=== PATIENT | female | born 1985 | race Caucasian/White ===

== ENCOUNTER 2016-06-26 23:35 | Emergency (ER) | payer MEDICAID ==
[~2016-06-26] VITALS: Ht 152.4 cm; Wt 68.5 kg
[~2016-06-26 23:35] MED LIST: PREN1TAB49 PO
[2016-06-26 23:40] VITALS: Ht 152.4 cm; Wt 68.5 kg
[2016-06-27 05:11] LABS: BASOPHILS % 0.2 % (0.0-2.0); EOSINOPHILS # 0.1 10^3/ul (0.0-0.5); EOSINOPHILS % 0.7 % (0.0-7.0); HEMATOCRIT 38.8 % (37.0-47.0); HEMOGLOBIN 13.8 g/dl (12.0-16.0); LYMPHOCYTES # 3.4 10^3/ul (0.8-2.9); LYMPHOCYTES % 30.8 % (15.0-51.0); MEAN CORPUSCULAR HEMOGLOBIN 30.9 pg (29.0-33.0); MEAN CORPUSCULAR HGB CONC 35.5 g/dl (32.0-37.0); MEAN CORPUSCULAR VOLUME 87.1 fl (82.0-101.0); MEAN PLATELET VOLUME 8.4 fl (7.4-10.4); MONOCYTE # 0.5 10^3/ul (0.3-0.9); NEUTROPHILS % 63.3 % (39.0-77.0); PLATELET COUNT 267 10^3/UL (140-440); RED BLOOD COUNT 4.46 10^6/ul (4.20-5.40); RED CELL DISTRIBUTION WIDTH 13.4 % (11.5-14.5); UNCORRECTED WBC 11.1 10^3/ul (4.8-10.8); WHITE BLOOD COUNT 11.1 10^3/ul (4.8-10.8)
[2016-06-27 05:13] LABS: CONDITION 1
[2016-06-27 05:44] LABS: ADD UMIC YES; URINE BILIRUBIN (Dip) NEGATIVE (NEGATIVE); URINE BLOOD (Dip) 3+ (NEGATIVE); URINE COLOR LT. YELLOW (YELLOW); URINE GLUCOSE (Dip) NEGATIVE (NEGATIVE); URINE KETONES (Dip) NEGATIVE (NEGATIVE); URINE LEUKOCYTE ESTERASE (Dip) 1+ (NEGATIVE); URINE NITRITE (Dip) NEGATIVE (NEGATIVE); URINE TOTAL PROTEIN (Dip) NEGATIVE (NEGATIVE); URINE UROBILINOGEN (Dip) 0.2 E.U./dL (0.1-1.0)
--- NOTE | 2016-06-27 05:48 | RADRPT ---
PROCEDURE: US OB. CLINICAL INDICATION: Vaginal bleeding. patient. TECHNIQUE: Transabdominal and transvaginal views of the pelvis are available for review. COMPARISON: No prior studies are available for comparison. FINDINGS: An intrauterine gestational sac is seen measuring 2.69 cm (7 weeks 5 days). And the amnion versus large misshapen yolk sac. No pole is seen. No subchorionic hemorrhage is seen. The right ovary was not able to be seen. The left ovary measures 3.5 x 1.7 x 2 cm. Small follicles are seen. Arterial flow of the left ovary was seen. No free fluid was seen. The uterus is retroverted. The cervix is closed. IMPRESSION: Gestational sac which would correspond to a 9-tvwj-1-day gestation but no normal yolk sac or p ole is seen. Probable missed . Follow-up scanning can be obtained as indicated clinically. Physician Kathy Date Time Electronically viewed and signed by Mariam Banks Physician on 06/27/2016 05:48 LE/
[2016-06-27] MEDS ORDERED: NITR-58 PO (05:59)
--- NOTE | 2016-06-27 05:59 | ERD ---
ER Documentation Chief Complaint Date/Time DATE: 06/27/16 TIME: 05:57 Chief Complaint vag bleed today w/small amt of clots,LMP=04/03/16 HPI This is a 31-year-old female presents to the ER with vaginal bleeding. Vaginal bleeding started today. Patient's last menstrual period. Was 04/03/2016. Patient states she is currently about 10 weeks . A0. Denies any urinary frequency or dysuria. She denies any vaginal discharge. Patient denies any pelvic pain. Denies any fevers or chills. ROS 12 point review of systems was done, all negative except per HPI. Medications Home Meds Reported Medications Vits W-Ca,Fe,Fa(<1MG) () 1 Tab Tablet, 1 TAB PO DAILY, #1 03/28/12 Allergies Allergies: Coded Allergies: No Known Allergies (Verified Allergy, Unknown, 03/28/12) PMhx/Soc History of Surgery: No Anesthesia Reaction: No Hx Neurological Disorder: No Hx Respiratory Disorders: No Hx Cardiac Disorders: No Hx Psychiatric Problems: No Hx Miscellaneous Medical Probl: Yes (gestational diabetes) Hx Alcohol Use: No Hx Substance Use: No Hx Tobacco Use: No Smoking Status: Never smoker Physical Exam Vitals Vital Signs Date Time Temp Pulse Resp B/P Pulse Ox O2 Delivery O2 Flow Rate FiO2 06/26/16 23:40 99.0 99 18 120/62 99 Physical Exam GENERAL: The patient is well developed and appropriate for usual state of health , in no apparent distress. HEENT: Atraumatic. Conjunctivae are pink. Pupils equal, round, and reactive to light. Extraocular muscles are grossly intact. Bilateral tympanic membranes are clear with no evidence of erythema, effusion or dulling of the light reflex. The oropharynx is clear with no erythema or exudates. NECK: C-spine is soft and supple. There is no cervical lymphadenopathy. CHEST: Clear to auscultation bilaterally. There are no rales, wheezes or rhonchi. HEART: Regular rate and rhythm. No murmurs, clicks, rubs or gallops. ABDOMEN: Soft, nontender and nondistended. Good bowel sounds. No rebound or guarding. No gross peritonitis. No gross organomegaly or masses. No Nevarez sign or McBurney point tenderness. BACK: No midline or flank tenderness. EXTREMITIES: Equal pulses bilaterally. There is no peripheral clubbing, cyanosis or edema. No focal swelling or erythema. Full range of motion. Grossly neurovascularly intact. NEURO: Alert and oriented. Cranial nerves II through XII are intact. Motor strength in all 4 extremities with 5/5 strength. Sensation grossly intact. Normal speech and gait. SKIN: There is no apparent rash or petechia. The skin is warm and dry. Result Diagram: 06/27/16 0430 Results 24 hrs Laboratory Tests Test 06/27/16 04:30 Basophils # 0.010^3/ul Basophils % 0.2% Beta HCG, Quantitative 58896.0mIU/ml Eosinophils # 0.110^3/ul Eosinophils % 0.7% Hematocrit 38.8% Hemoglobin 13.8g/dl Lymphocytes # 3.410^3/ul Lymphocytes % 30.8% Mean Corpuscular Hemoglobin 30.9pg Mean Corpuscular Hemoglobin Concent 35.5g/dl Mean Corpuscular Volume 87.1fl Mean Platelet Volume 8.4fl Monocytes # 0.510^3/ul Monocytes % 5.0% Neutrophils # 7.010^3/ul Neutrophils % 63.3% Nucleated Red Blood Cells # 0.010^3/ul Nucleated Red Blood Cells % 0.0/100WBC Platelet Count 46603^3/UL Red Blood Count 4.4610^6/ul Red Cell Distribution Width 13.4% Urine Bilirubin NEGATIVE Urine Clarity SL HAZY Urine Color LT. YELLOW Urine Glucose NEGATIVE% Urine Hemoglobin 3+ Urine Ketones NEGATIVE Urine Leukocyte Esterase 1+ Urine Microscopic RBC Pending Urine Microscopic WBC Pending Urine Nitrite NEGATIVE Urine Specific [place] 1.020 Urine Total Protein NEGATIVE Urine Urobilinogen 0.2 E.U./dL Urine pH 6.0 White Blood Count 11.110^3/ul Procedures/MDM Differential diagnosis: Threatened , missed , incomplete , ectopic , molar , UTI, pyelonephritis. She more than likely had a missed as stated on ultrasound. At this time suspicion for ectopic is low as there is an intrauterine . Patient does not have any pelvic pain. Patient is hemodynamically stable with no signs or symptoms of severe anemia. Patient was found to have a urinary tract infection. She'll be sent home with Macrobid. She needs to return to ER or to her [facility] [facility] in 48 hours for repeat blood work and ultrasound. She must return sooner symptoms worsen. My medical decision making was shared with the patient she understands and agrees with plan. Departure Diagnosis: Primary Impression: Threatened Condition: Stable Patient Instructions: Miscarriage Additional Instructions: Regrese a estas instalaciones dentro de DOS LI para un examen de seguimiento.Regrese antes si mendoza condicin se empeora. ELIZ GRECO Jun 27, 2016 05:59
[2016-06-27 06:10] LABS: SQUAMOUS EPITHELIAL CELL,UR MANY
[2016-06-27 06:11] LABS: BACTERIA,URINE FEW
[2016-06-27 06:20] VITALS: BP 117/57; PULSE 78; RESP 18; TEMP 98.8
== END 2016-06-27 06:20 | disposition home or self-care (01) ==
LOC: FTE 23:35
DX: O20.0 Threatened abortion (principal); Z3A.01 Less than 8 weeks gestation of pregnancy
CPT/HCPCS: 36415; 76801; 76817; 81001; 84702; 85025; 86900; 86901; Z7502; 81003

== ENCOUNTER 2016-06-28 11:46 | Emergency (ER) | payer MEDICAID ==
[~2016-06-28] VITALS: Ht 152.4 cm; Wt 67.0 kg
[~2016-06-28 11:46] MED LIST changes: +NITR-58 PO
[2016-06-28 12:23] VITALS: Ht 152.4 cm; Wt 67.0 kg
[2016-06-28 15:18] LABS: ADD UMIC YES; URINE BILIRUBIN (Dip) NEGATIVE (NEGATIVE); URINE BLOOD (Dip) 3+ (NEGATIVE); URINE GLUCOSE (Dip) NEGATIVE (NEGATIVE); URINE KETONES (Dip) NEGATIVE (NEGATIVE); URINE LEUKOCYTE ESTERASE (Dip) TRACE (NEGATIVE); URINE NITRITE (Dip) NEGATIVE (NEGATIVE); URINE TOTAL PROTEIN (Dip) TRACE (NEGATIVE); URINE UROBILINOGEN (Dip) 0.2 E.U./dL (0.1-1.0)
[2016-06-28 15:34] LABS: BASOPHILS % 0.3 % (0.0-2.0); EOSINOPHILS # 0.1 10^3/ul (0.0-0.5); EOSINOPHILS % 0.7 % (0.0-7.0); HEMATOCRIT 40.3 % (37.0-47.0); HEMOGLOBIN 13.7 g/dl (12.0-16.0); LYMPHOCYTES # 2.5 10^3/ul (0.8-2.9); LYMPHOCYTES % 22.3 % (15.0-51.0); MEAN CORPUSCULAR HEMOGLOBIN 30.3 pg (29.0-33.0); MEAN CORPUSCULAR HGB CONC 33.9 g/dl (32.0-37.0); MEAN CORPUSCULAR VOLUME 89.3 fl (82.0-101.0); MEAN PLATELET VOLUME 8.4 fl (7.4-10.4); MONOCYTE # 0.5 10^3/ul (0.3-0.9); MONOCYTES % 4.5 % (0.0-11.0); NEUTROPHIL # 8.1 10^3/ul (1.6-7.5); NEUTROPHILS % 72.2 % (39.0-77.0); PLATELET COUNT 290 10^3/UL (140-440); RED BLOOD COUNT 4.51 10^6/ul (4.20-5.40); RED CELL DISTRIBUTION WIDTH 13.1 % (11.5-14.5); UNCORRECTED WBC 11.2 10^3/ul (4.8-10.8); WHITE BLOOD COUNT 11.2 10^3/ul (4.8-10.8)
[2016-06-28 15:37] LABS: CONDITION 1
[2016-06-28 15:50] LABS: URINE COLOR DARK YELLOW (YELLOW)
[2016-06-28 15:54] LABS: BACTERIA,URINE MODERATE; SQUAMOUS EPITHELIAL CELL,UR MANY; URINE RBCS >200 /HPF (0)
--- NOTE | 2016-06-28 15:55 | RADRPT ---
PROCEDURE: US OB. CLINICAL INDICATION: Vaginal bleeding TECHNIQUE: Transabdominal and transvaginal views of the pelvis are available for review. COMPARISON: 06/27/2016 FINDINGS: There is a single intrauterine gestation with the crown-rump length measuring 0.3 cm, corresponding to a gestational age of 5 weeks and 6 days. The gestational sac measures the knee diameter of 2.5 cm, corresponding to a 7 weeks and 3 days gestation. There is no abnormally enlarged amnion. The heart tones are not present. The ovaries are normal in size and echogenicity. Normal Doppler flow is identified in both ovaries. The right ovary measures 3.8 x 2.2 cm. The left ovary measures 2.9 x 1.4 cm. There is no free fluid. RPTAT: AA IMPRESSION: Single intrauterine with an estimated gestational age of 5 weeks and 6 days, based on ultr asound measurements. Abnormally enlarged amnion. The findings likely represents a nonviable . Close follow-up ultrasound and HCG levels is recommended. .Aryan Esposito MD, Date Time Electronically viewed and signed by .Aryan Esposito MD, on 06/28/2016 15:55 .S/
--- NOTE | 2016-06-28 20:08 | ERD ---
ER Documentation Chief Complaint Date/Time DATE: 06/28/16 TIME: 20:08 Chief Complaint vag bleeding was seen here did not detect heart tones here for rechec ROS All systems reviewed and are negative except as per history of present illness. Medications Home Meds Active Scripts Nitrofurantoin Monohyd Macrocr* (Macrobid*) 100 Mg Capsr, 100 MG PO BID for 7 Days, CAP Prov:ELIZ GRECO 06/27/16 Reported Medications Vits W-Ca,Fe,Fa(<1MG) () 1 Tab Tablet, 1 TAB PO DAILY, #1 03/28/12 Allergies Allergies: Coded Allergies: No Known Allergies (Verified Allergy, Unknown, 03/28/12) PMhx/Soc History of Surgery: No Anesthesia Reaction: No Hx Neurological Disorder: No Hx Respiratory Disorders: No Hx Cardiac Disorders: No Hx Psychiatric Problems: No Hx Miscellaneous Medical Probl: Yes (gestational diabetes) Hx Alcohol Use: No Hx Substance Use: No Hx Tobacco Use: No Physical Exam Vitals Vital Signs Date Time Temp Pulse Resp B/P Pulse Ox O2 Delivery O2 Flow Rate FiO2 06/28/16 12:23 98.0 86 18 133/71 98 Physical Exam Const: [] Head: Atraumatic Eyes: Normal Conjunctiva ENT: Normal External Ears, Nose and Mouth. Neck: Full range of motion..~ No meningismus. Resp: Clear to auscultation bilaterally Cardio: Regular rate and rhythm, no murmurs Abd: Soft, non tender, non distended. Normal bowel sounds Skin: No petechiae or rashes Back: No midline or flank tenderness Ext: No cyanosis, or edema Neur: Awake and alert Psych: Normal Mood and Affect Result Diagram: 06/28/16 1439 Results 24 hrs Laboratory Tests Test 06/28/16 14:25 06/28/16 14:39 Urine Bacteria MODERATE Urine Bilirubin NEGATIVE Urine Clarity CLOUDY Urine Color DARK YELLOW Urine Glucose NEGATIVE% Urine Hemoglobin 3+ Urine Ketones NEGATIVE Urine Leukocyte Esterase TRACE Urine Microscopic RBC >200/HPF Urine Microscopic WBC 10-25/HPF Urine Nitrite NEGATIVE Urine Specific [place] >=1.030 Urine Squamous Epithelial Cells MANY Urine Total Protein TRACE Urine Urobilinogen 0.2 E.U./dL Urine pH 5.5 Basophils # 0.010^3/ul Basophils % 0.3% Beta HCG, Quantitative 43607.0mIU/ml Eosinophils # 0.110^3/ul Eosinophils % 0.7% Hematocrit 40.3% Hemoglobin 13.7g/dl Lymphocytes # 2.510^3/ul Lymphocytes % 22.3% Mean Corpuscular Hemoglobin 30.3pg Mean Corpuscular Hemoglobin Concent 33.9g/dl Mean Corpuscular Volume 89.3fl Mean Platelet Volume 8.4fl Monocytes # 0.510^3/ul Monocytes % 4.5% Neutrophils # 8.110^3/ul Neutrophils % 72.2% Nucleated Red Blood Cells # 0.010^3/ul Nucleated Red Blood Cells % 0.0/100WBC Platelet Count 35645^3/UL Red Blood Count 4.5110^6/ul Red Cell Distribution Width 13.1% White Blood Count 11.210^3/ul Departure Diagnosis: Primary Impression: Threatened Condition: Stable Patient Instructions: Possible Miscarriage (Threatened ) Additional Instructions: Llame al doctor MAANA y donnie molly ROSA PARA DENTRO DE 1-2 ORTIZ.Dgale a la secretaria que nosotros le instruimos hacer esta rosa.Avise o llame si mendoza condicin se empeora antes de la rosa. Regresa aqui si peor o no mejor. ELIZ GRECO Jun 28, 2016 20:08
== END 2016-06-28 17:06 | disposition home or self-care (01) ==
LOC: FTE 11:46
DX: O20.0 Threatened abortion (principal); Z3A.01 Less than 8 weeks gestation of pregnancy
CPT/HCPCS: 76801; 76817; 81001; 81003; 84702; 85025

== ENCOUNTER 2016-06-30 18:29 | Emergency (ER) | payer MEDICAID ==
[~2016-06-30] VITALS: Ht 157.5 cm; Wt 71.0 kg
[2016-06-30 18:39] VITALS: Ht 157.5 cm; Wt 71.0 kg
[2016-06-30 21:06] VITALS: BP 128/62; PULSE 88; RESP 18; TEMP 97.2
--- NOTE | 2016-06-30 21:10 | ERD ---
ER Documentation Chief Complaint Date/Time DATE: 06/30/16 TIME: 21:03 Chief Complaint 8 wekks and heavy bleeding and cramps since Tuesday HPI 31-year-old female A0 presenting with vaginal bleeding. She is reportedly 8 weeks . The bleeding started 4 days ago. She was seen in the ER and told that heart tones were not seen. She followed up with her OB doctor today, who scheduled her for a D&C tomorrow. Patient states that she was initially spotting but now her bleeding is worse. She is now passing clots. She has changed her pad about 5 times throughout the entire day today. She endorses associated lower abdominal cramping radiating to her lower back. The cramping is intermittent, 6 out of 10. No associated fever, chills, chest pain, shortness of breath, dizziness. ROS All systems reviewed and are negative except as per history of present illness. Medications Home Meds Active Scripts Nitrofurantoin Monohyd Macrocr* (Macrobid*) 100 Mg Capsr, 100 MG PO BID for 7 Days, CAP Prov:ELIZ GRECO 06/27/16 Reported Medications Vits W-Ca,Fe,Fa(<1MG) () 1 Tab Tablet, 1 TAB PO DAILY, #1 03/28/12 Allergies Allergies: Coded Allergies: No Known Allergies (Verified Allergy, Unknown, 06/30/16) PMhx/Soc Medical and Surgical Hx: pt denies Medical Hx, pt denies Surgical Hx History of Surgery: No Anesthesia Reaction: No Hx Neurological Disorder: No Hx Respiratory Disorders: No Hx Cardiac Disorders: No Hx Psychiatric Problems: No Hx Miscellaneous Medical Probl: Yes (gestational diabetes) Hx Alcohol Use: No Hx Substance Use: No Hx Tobacco Use: No Smoking Status: Never smoker FmHx Family History: No diabetes Physical Exam Vitals Vital Signs Date Time Temp Pulse Resp B/P Pulse Ox O2 Delivery O2 Flow Rate FiO2 06/30/16 18:39 97.2 93 16 136/65 99 Physical Exam Const: No apparent distress, nontoxic Head: Atraumatic Eyes: Normal Conjunctiva ENT: Normal External Ears, Nose and Mouth. Neck: Full range of motion..~ No meningismus. Resp: Clear to auscultation bilaterally Cardio: Regular rate and rhythm, no murmurs Abd: Soft, mildly tender in lower abdomen, no rebound or guarding, non distended. Normal bowel sounds Lead Cook: Small amount of blood in the vaginal vault, cervical os open about 1 cm , no cervical motion tenderness, no active hemorrhage from the cervical os, only mild oozing Skin: No petechiae or rashes Back: No midline or flank tenderness Ext: No cyanosis, or edema Neur: Awake and alert and oriented 3 Psych: Normal Mood and Affect Procedures/MDM While the patient was here, she states that she passed a large clot and her cramping has improved. Her bleeding has also lessened. Her vitals are stable. I believe the patient is actively having an that is incomplete. I advised her to keep an appointment with her doctor tomorrow. Return precautions were discussed at length. Ibuprofen was recommended for pain. Patient was stable upon discharge and agreed to return for any worsening symptoms. Departure Diagnosis: Primary Impression: Incomplete without complications Additional Impression: Vaginal bleeding Condition: Stable Patient Instructions: Miscarriage (Incomplete) Additional Instructions: See your doctor as scheduled tomorrow. Return for any worsening symptoms. LUCY MAYBERRY MD Jun 30, 2016 21:10
== END 2016-06-30 21:06 | disposition home or self-care (01) ==
LOC: FTE 18:29
DX: O20.0 Threatened abortion (principal); Z3A.08 8 weeks gestation of pregnancy
CPT/HCPCS: 99282

== ENCOUNTER 2016-07-01 16:41 | Day surgery (SDC) | payer MEDICAID ==
[2016-07-01] VITALS (8 sets, daily range): BP systolic 94–118; BP diastolic 47–71; PULSE 78–97; RESP 15–25; Ht 147.3 cm; Wt 64.3 kg
[~2016-07-01] VITALS: Ht 147.3 cm; Wt 64.3 kg
[~2016-07-01 16:41] MED LIST changes: +CEFAZOLIN 1 GM INJ ONE; +LACTATED RINGER'S 1,000 ML IV SCH
[2016-07-01 17:24] LABS: BASOPHILS % 0.3 % (0.0-2.0); EOSINOPHILS # 0.1 10^3/ul (0.0-0.5); EOSINOPHILS % 0.6 % (0.0-7.0); HEMATOCRIT 36.9 % (37.0-47.0); HEMOGLOBIN 12.9 g/dl (12.0-16.0); LYMPHOCYTES # 2.7 10^3/ul (0.8-2.9); LYMPHOCYTES % 25.6 % (15.0-51.0); MEAN CORPUSCULAR HEMOGLOBIN 30.7 pg (29.0-33.0); MEAN CORPUSCULAR HGB CONC 34.8 g/dl (32.0-37.0); MEAN CORPUSCULAR VOLUME 88.3 fl (82.0-101.0); MEAN PLATELET VOLUME 8.2 fl (7.4-10.4); MONOCYTE # 0.6 10^3/ul (0.3-0.9); MONOCYTES % 5.2 % (0.0-11.0); NEUTROPHIL # 7.3 10^3/ul (1.6-7.5); NEUTROPHILS % 68.3 % (39.0-77.0); PLATELET COUNT 246 10^3/UL (140-440); RED BLOOD COUNT 4.19 10^6/ul (4.20-5.40); RED CELL DISTRIBUTION WIDTH 13.1 % (11.5-14.5); UNCORRECTED WBC 10.7 10^3/ul (4.8-10.8); WHITE BLOOD COUNT 10.7 10^3/ul (4.8-10.8)
[2016-07-01 17:25] LABS: CONDITION 1
[2016-07-01] MEDS ORDERED: PROPOFOL 40 ML ONE (17:57)
[2016-07-01] MEDS ORDERED: FENTAnyl 50 MCG/ML VIAL ONE (17:58)
[2016-07-01] MEDS ORDERED: LIDOCAINE 2% (SDV) 5 ML INJ ONE (17:58)
[2016-07-01] MEDS ORDERED: OXYTOCIN 10 UNIT INJ ONE (18:48)
--- NOTE | 2016-07-01 18:48 | PREOPHP ---
DATE OF ADMISSION: 07/01/2016 HISTORY OF PRESENT ILLNESS: A 31-year-old female 3, para 2, last menstrual period 6. She is admitted due to a missed . PAST MEDICAL HISTORY: Unremarkable. PAST SURGICAL HISTORY: Unremarkable. ALLERGIES: NO KNOWN ALLERGIES. FAMILY HISTORY: Diabetes. PHYSICAL EXAMINATION: VITAL SIGNS: The patient is afebrile. Vital signs stable. HEAD, NECK AND CHEST: Within normal limits. ABDOMEN: Soft, nontender, nondistended. PELVIC: Uterus is slightly enlarged. EXTREMITIES: Within normal limits. NEUROLOGIC: Within normal limits. IMPRESSION: Missed . PLAN: Dilation and curettage. Risks, benefits and alternatives of the procedure were explained to the patient. The patient said she understood and gave informed consent for the procedure. Dictated By: JAMES COELLO/MARYJO Conf#: [id number] DID#: [id number]
--- NOTE | 2016-07-01 20:19 | OPR ---
DATE OF OPERATION: 07/01/2016 PREOPERATIVE DIAGNOSIS: Missed . POSTOPERATIVE DIAGNOSIS: Missed . OPERATION PERFORMED: Dilation and curettage. SURGEON: James Jenkins MD ANESTHESIA: General. ANESTHESIOLOGIST: Trace Maddox MD PROCEDURE: The patient was taken to the operating room and placed on the operating table in supine position. After adequate general anesthesia was given, the patient was placed in dorsal lithotomy p osition. The area was prepared and draped in the usual sterile fashion. Weighted speculum was plac ed inside the vagina, and tenaculum was used to grasp the anterior lip of the cervix. Using cervica l dilators, the cervical os was dilated using a size 8 cannula and suction curettage was performed, and specimen obtained was sent to Pathology. Next, a sharp curette was used to perform sharp curett age. After the uterine cavity was assured to be empty, all the instruments were removed. Adequate hemostasis was assured. Patient tolerated the procedure well. The patient was awakened from anesth esia and transferred to recovery room in stable condition. ESTIMATED BLOOD LOSS: 20 mL. COMPLICATIONS: None. COUNTS: All counts were correct. Dictated By: JAMES JENKINS MD GD/NTS Conf#: [id number] DID#: [id number]
[2016-07-02] MEDS ORDERED: INFLUENZA VIRUS VACCINE 0.5 ML (DISPENSING) IM* ONE (09:00)
== END 2016-07-01 20:10 | disposition home or self-care (01) ==
LOC: SDS 16:41
PROVIDERS: ATTEND Obstetrics & Gynecology
DX: O02.1 Missed abortion (principal)
CPT/HCPCS: 59820; 85025; 86850; 86900; 86901; 88305; J0690; J3010; Z7512; Z7610; J2590

== ENCOUNTER 2016-11-08 13:41 | Emergency (ER) | payer MEDICAID ==
[~2016-11-08] VITALS: Ht 157.5 cm; Wt 68.0 kg
[~2016-11-08 13:41] MED LIST changes: -CEFAZOLIN 1 GM INJ ONE; -LACTATED RINGER'S 1,000 ML IV SCH
[2016-11-08 13:43] VITALS: Ht 157.5 cm; Wt 68.0 kg
[2016-11-08] MEDS ORDERED: MECL12.574 PO (15:55)
--- NOTE | 2016-11-08 16:02 | ERA ---
ER Documentation Chief Complaint Date/Time DATE: 11/08/16 TIME: 15:59 Chief Complaint anxiety, leg numbness , dizziness, medel x 21 days, feels anxious HPI The patient is a 31-year-old female, presenting to the ER because of intermittent dizziness, anxious, bilateral lower extremity numbness for the last 2 weeks. She has similar symptoms previously, denies syncope, near syncope , neck pain, chest pain with exertion of vomiting or diaphoresis, abdominal pain , vomiting, dysuria, diarrhea. She does not smoke nor drink or use any illicit drug Past medical history/surgical history: None ROS All systems reviewed and are negative except as per history of present illness. Medications Home Meds Active Scripts Meclizine Hcl* (Antivert*) 12.5 Mg Tab, 25 MG PO Q6H Y for DIZZINESS, #20 TAB Prov:RAUL BOYER MD 11/08/16 Nitrofurantoin Monohyd Macrocr* (Macrobid*) 100 Mg Capsr, 100 MG PO BID for 7 Days, CAP Prov:ELIZ GRECO 06/27/16 Reported Medications Vits W-Ca,Fe,Fa(<1MG) () 1 Tab Tablet, 1 TAB PO DAILY, #1 03/28/12 Allergies Allergies: Coded Allergies: No Known Allergies (Verified Allergy, Unknown, 06/30/16) PMhx/Soc History of Surgery: No Anesthesia Reaction: No Hx Neurological Disorder: No Hx Respiratory Disorders: No Hx Cardiac Disorders: No Hx Psychiatric Problems: No Hx Miscellaneous Medical Probl: No Hx Alcohol Use: No Hx Substance Use: No Hx Tobacco Use: No Smoking Status: Never smoker Physical Exam Vitals Vital Signs Date Time Temp Pulse Resp B/P Pulse Ox O2 Delivery O2 Flow Rate FiO2 11/08/16 13:43 98.3 100 18 139/78 99 Physical Exam Const: No acute distress. Head: Atraumatic. Eyes: Normal Conjunctiva. ENT: Normal External Ears, Nose and Mouth. Neck: Full range of motion. No meningismus. Resp: Clear to auscultation bilaterally. Cardio: Regular rate and rhythm. Abd: Soft, non distended, normal bowel sounds, non tender. Skin: No petechiae or rashes. Back: No midline or flank tenderness. Ext: No cyanosis, or edema. Neur: Awake and alert. No focal deficit Psych: Normal Mood and Affect. Procedures/MDM EKG: Read by emergency physician Rate/Rhythm: Sinus tachycardia 105 beats/min QRS, ST, T-waves: No ST elevation, no T inversion Impression: Abnormal EKG MEDICAL MAKING DECISION: The patient is 30-year-old female, presenting with acute dizziness, most likely due to acute anxiety The differential diagnoses considered include but are not limited to central causes such as cerebellar infarct, cerebellar hemorrhage, cerebellar tumor, acoustic neuroma, peripheral causes such as benign positional vertigo, labyrinthitis, medication, Meniere's disease. Departure Condition: Good Patient Instructions: Dizziness, Unk Cause Additional Instructions: Call your primary care doctor TOMORROW for an appointment during the next 1-2 days.See the doctor sooner or return here if your condition worsens before your appointment time. She was treated with Antivert I discussed the findings with the patient. I advised the patient to follow-up with the primary physician in about 1-2 days, sooner if needed and return if any concern. The patient's blood pressure was elevated (>120/80) but appears stable without evidence of hypertension emergency or urgency. The patient was counseled about the risks of hypertension and urged to pursue outpatient monitoring and therapy within a week with their primary care physician. RAUL BOYER MD Nov 08, 2016 16:02
== END 2016-11-08 16:18 | disposition home or self-care (01) ==
LOC: FTE 13:41
DX: R42 Dizziness and giddiness (principal); R20.0 Anesthesia of skin
CPT/HCPCS: 93005

== ENCOUNTER 2017-03-07 07:12 | Emergency (ER) | payer MEDICAID ==
[~2017-03-07] VITALS: Ht 149.9 cm; Wt 69.5 kg
[~2017-03-07 07:12] MED LIST changes: +MECL12.574 PO
[2017-03-07 07:14] VITALS: Ht 149.9 cm; Wt 69.5 kg
[2017-03-07 08:24] LABS: BASOPHILS % 0.1 % (0.0-2.0); EOSINOPHILS # 0.1 10^3/ul (0.0-0.5); EOSINOPHILS % 1.3 % (0.0-7.0); HEMATOCRIT 41.3 % (37.0-47.0); HEMOGLOBIN 14.1 g/dl (12.0-16.0); LYMPHOCYTES # 2.4 10^3/ul (0.8-2.9); LYMPHOCYTES % 28.4 % (15.0-51.0); MEAN CORPUSCULAR HEMOGLOBIN 28.9 pg (29.0-33.0); MEAN CORPUSCULAR HGB CONC 34.1 g/dl (32.0-37.0); MEAN CORPUSCULAR VOLUME 84.6 fl (82.0-101.0); MEAN PLATELET VOLUME 9.9 fl (7.4-10.4); MONOCYTE # 0.6 10^3/ul (0.3-0.9); MONOCYTES % 6.7 % (0.0-11.0); NEUTROPHIL # 5.4 10^3/ul (1.6-7.5); NEUTROPHILS % 63.1 % (39.0-77.0); PLATELET COUNT 241 10^3/UL (140-415); RED BLOOD COUNT 4.88 10^6/ul (4.20-5.40); RED CELL DISTRIBUTION WIDTH 12.1 % (11.5-14.5); WHITE BLOOD COUNT 8.5 10^3/ul (4.8-10.8)
[2017-03-07 08:26] VITALS: BP 100/60; PULSE 80; RESP 18
--- NOTE | 2017-03-07 08:39 | RADRPT ---
PROCEDURE: XR Chest. CLINICAL INDICATION: Palpitations TECHNIQUE: A single AP view of the chest was obtained. COMPARISON: None. FINDINGS: No focal airspace opacification, pleural effusion or pneumothorax is seen. The cardiomediastinal si lhouette is within normal limits for size. The osseous structures are unremarkable. IMPRESSION: Unremarkable chest x-ray. RPTAT: HH .Arianna Perez MD, MD Date Time Electronically viewed and signed by .Arianna Perez MD, on 03/07/2017 08:39 .G/
[2017-03-07 08:44] LABS: ALBUMIN 4.3 g/dl (3.3-4.9); ALBUMIN/GLOBULIN RATIO 1.3; BILIRUBIN,INDIRECT 1.2 mg/dl (0-1.1); BILIRUBIN,TOTAL 1.2 mg/dl (0.2-1.3); CALCIUM 8.4 mg/dl (8.4-10.2); CREATININE 0.64 mg/dl (0.44-1.00); POTASSIUM 3.5 mmol/L (3.5-5.1); TOTAL PROTEIN 7.6 g/dl (6.1-8.1)
[2017-03-07 08:47] LABS: ADD UMIC NO; UR ASCORBIC ACID NEGATIVE (NEGATIVE); UR BILIRUBIN (Dip) NEGATIVE (NEGATIVE); UR BLOOD (Dip) NEGATIVE (NEGATIVE); UR CLARITY CLEAR (CLEAR); UR COLOR YELLOW (YELLOW); UR GLUCOSE (Dip) NEGATIVE (NEGATIVE); UR KETONES (Dip) NEGATIVE (NEGATIVE); UR LEUKOCYTE ESTERASE (Dip) NEGATIVE Leu/ul (NEGATIVE); UR NITRITE (Dip) NEGATIVE (NEGATIVE); UR SPECIFIC GRAVITY (Dip) 1.011 (1.003-1.030); UR TOTAL PROTEIN (Dip) NEGATIVE (NEGATIVE); UR UROBILINOGEN (Dip) NEGATIVE (NEGATIVE)
[2017-03-07] MEDS ORDERED: ALPR0.5T PO (09:13)
--- NOTE | 2017-03-07 12:47 | ERD ---
ER Documentation Chief Complaint Date/Time DATE: 03/07/17 TIME: 12:43 Chief Complaint CAME IN VIA INTAKE DUE TO PALPITATIONS AND SAW TUESDAY, HEADACHE HPI 32-year-old female complaining of heart palpitations 1 week that are constant. Patient denies pleuritic chest pain or cardiac chest pain. States the palpitations do not come and go and nothing improves or resolves then. Patient denies shortness of breath. Denies cough. States she has a history of anxiety and feels this may be the same. Patient is taking metoprolol. Denies any recent traumatic injuries. Denies fever. Denies medical problems. NKDA. Surgical history: D&C. Social history denies. ROS All systems reviewed and are negative except as per history of present illness. Medications Home Meds Active Scripts Alprazolam* (Xanax*) 0.5 Mg Tab, 0.5 MG PO Q8H Y for ANXIETY, #30 TAB Prov:LUNA ORLANDO PA-C 03/07/17 Meclizine Hcl* (Antivert*) 12.5 Mg Tab, 25 MG PO Q6H Y for DIZZINESS, #20 TAB Prov:RAUL BOYER MD 11/08/16 Nitrofurantoin Monohyd Macrocr* (Macrobid*) 100 Mg Capsr, 100 MG PO BID for 7 Days, CAP Prov:ELIZ GRECO 06/27/16 Reported Medications Vits W-Ca,Fe,Fa(<1MG) () 1 Tab Tablet, 1 TAB PO DAILY, #1 03/28/12 Allergies Allergies: Coded Allergies: No Known Allergies (Verified Allergy, Unknown, 03/07/17) PMhx/Soc History of Surgery: No Anesthesia Reaction: No Hx Neurological Disorder: No Hx Respiratory Disorders: No Hx Cardiac Disorders: No Hx Psychiatric Problems: No Hx Miscellaneous Medical Probl: Yes (Thyroid) Hx Alcohol Use: No Hx Substance Use: No Hx Tobacco Use: No Smoking Status: Never smoker Physical Exam Vitals Vital Signs Date Time Temp Pulse Resp B/P Pulse Ox O2 Delivery O2 Flow Rate FiO2 03/07/17 08:26 80 18 100/60 97 Room Air 03/07/17 07:14 97.9 95 18 127/72 98 Physical Exam GENERAL: The patient is well-appearing, well-nourished, in no acute distress HEENT: Atraumatic. Conjunctivae are pink. Pupils equal, round, and reactive to light. There is no scleral icterus. Tympanic membranes clear bilaterally. Oropharynx clear. No nystagmus or photophobia. NECK: C-spine is soft and supple. There is no meningismus. There is no cervical lymphadenopathy. CHEST: Clear to auscultation bilaterally. There are no rales, wheezes or rhonchi. HEART: Regular rate and rhythm. No murmurs, clicks, rubs or gallops. No S3 or S4. NEUROLOGIC: Alert and oriented. Cranial nerves II through XII intact. Motor strength in all 4 extremities with 5 out of 5 strength. Sensation grossly intact. Normal speech and gait. Babinski negative. DTR 2+ throughout. Result Diagram: 03/07/17 07503/07/17 0750 Results 24 hrs Laboratory Tests Test 03/07/17 07:50 03/07/17 07:52 White Blood Count 8.510^3/ul Red Blood Count 4.8810^6/ul Hemoglobin 14.1g/dl Hematocrit 41.3% Mean Corpuscular Volume 84.6fl Mean Corpuscular Hemoglobin 28.9pg Mean Corpuscular Hemoglobin Concent 34.1g/dl Red Cell Distribution Width 12.1% Platelet Count 37201^3/UL Mean Platelet Volume 9.9fl Neutrophils % 63.1% Lymphocytes % 28.4% Monocytes % 6.7% Eosinophils % 1.3% Basophils % 0.1% Nucleated Red Blood Cells % 0.0/100WBC Neutrophils # 5.410^3/ul Lymphocytes # 2.410^3/ul Monocytes # 0.610^3/ul Eosinophils # 0.110^3/ul Basophils # 0.010^3/ul Nucleated Red Blood Cells # 0.010^3/ul Sodium Level 140mmol/L Potassium Level 3.5mmol/L Chloride Level 107mmol/L Carbon Dioxide Level 24mmol/L Anion Gap 13 Blood Urea Nitrogen 16mg/dl Creatinine 0.64mg/dl Glucose Level 95mg/dl Calcium Level 8.4mg/dl Total Bilirubin 1.2mg/dl Direct Bilirubin 0.00mg/dl Indirect Bilirubin 1.2mg/dl Aspartate Amino Transf (AST/SGOT) 21IU/L Alanine Aminotransferase (ALT/SGPT) 31IU/L Alkaline Phosphatase 85IU/L Total Protein 7.6g/dl Albumin 4.3g/dl Globulin 3.30g/dl Albumin/Globulin Ratio 1.30 Lipase 47U/L Serum HCG, Qualitative NEGATIVE Urine Color YELLOW Urine Clarity CLEAR Urine pH 6.0 Urine Specific [place] 1.011 Urine Ketones NEGATIVEmg/dL Urine Nitrite NEGATIVEmg/dL Urine Bilirubin NEGATIVEmg/dL Urine Urobilinogen NEGATIVEmg/dL Urine Leukocyte Esterase NEGATIVELeu/ul Urine Hemoglobin NEGATIVEmg/dL Urine Glucose NEGATIVEmg/dL Urine Total Protein NEGATIVEmg/dl Procedures/MDM DIAGNOSTIC IMAGING REPORT Patient: SAVANAH MEYER : 1985 Age: 32 Sex: F MR #: [id number] DOS: 03/07/17 0741 Ordering MD: SAVANAH ORLANDO PA-C Location: [facility] Room/Bed: PROCEDURE: XR Chest. CLINICAL INDICATION: Palpitations TECHNIQUE: A single AP view of the chest was obtained. COMPARISON: None. FINDINGS: No focal airspace opacification, pleural effusion or pneumothorax is seen. The cardiomediastinal silhouette is within normal limits for size. The osseous structures are unremarkable. IMPRESSION: Unremarkable chest x-ray. EK BPM Rate/Rhythm: Normal Sinus Rhythm QRS, ST, T-waves: No changes consistent w/ acute ischemia Impression: No evidence of ischemia or arrhythmia MDM: 32-year-old female complaining of heart palpitations. Patient's EKG and chest x-ray are within normal limits. Patient's exam is non-concerning with normal vital signs. Patient's blood work is within normal limits. She is not complaining of pleuritic chest pain or chest pain. I have low suspicion for cardiac or pulmonary emergency at this time. Patient is nontoxic-appearing and will given medications. Patient is told if symptoms change or worsen to return to the emergency room immediately. Patient is recommended to follow-up with primary care within 1-2 days for close evaluation. All questions answered discharge. Departure Diagnosis: Primary Impression: Palpitations Condition: Stable Patient Instructions: Palpitations Referrals: CHAPIN HAYES (PCP) Additional Instructions: FOLLOW UP WITH YOUR PRIMARY CARE PHYSICIAN TOMORROW.Return to this facility if you are not improving as expected. LUNA ORLANDOC Mar 07, 2017 12:47
== END 2017-03-07 09:44 | disposition home or self-care (01) ==
LOC: FTE 07:12
DX: R00.2 Palpitations (principal)
CPT/HCPCS: 36415; 71010; 80053; 81003; 83690; 84703; 85025; 93005; Z7502

== ENCOUNTER 2017-05-24 05:36 | Emergency (ER) | payer MEDICAID ==
[~2017-05-24] VITALS: Ht 157.5 cm; Wt 70.5 kg
[~2017-05-24 05:36] MED LIST changes: +ALPR0.5T PO
[2017-05-24 05:41] VITALS: Ht 157.5 cm; Wt 70.5 kg
[2017-05-24 07:16] LABS: BASOPHILS % 0.2 % (0.0-2.0); EOSINOPHILS # 0.1 10^3/ul (0.0-0.5); EOSINOPHILS % 0.9 % (0.0-7.0); HEMATOCRIT 41.6 % (37.0-47.0); HEMOGLOBIN 14.7 g/dl (12.0-16.0); LYMPHOCYTES # 3.4 10^3/ul (0.8-2.9); LYMPHOCYTES % 26.7 % (15.0-51.0); MEAN CORPUSCULAR HEMOGLOBIN 30.1 pg (29.0-33.0); MEAN CORPUSCULAR HGB CONC 35.3 g/dl (32.0-37.0); MEAN CORPUSCULAR VOLUME 85.2 fl (82.0-101.0); MEAN PLATELET VOLUME 9.8 fl (7.4-10.4); MONOCYTE # 0.7 10^3/ul (0.3-0.9); MONOCYTES % 5.7 % (0.0-11.0); NEUTROPHIL # 8.4 10^3/ul (1.6-7.5); NEUTROPHILS % 65.9 % (39.0-77.0); PLATELET COUNT 282 10^3/UL (140-415); RED BLOOD COUNT 4.88 10^6/ul (4.20-5.40); RED CELL DISTRIBUTION WIDTH 12.8 % (11.5-14.5); WHITE BLOOD COUNT 12.8 10^3/ul (4.8-10.8)
[2017-05-24 07:26] LABS: ADD UMIC YES; UR ASCORBIC ACID NEGATIVE (NEGATIVE); UR BILIRUBIN (Dip) NEGATIVE (NEGATIVE); UR BLOOD (Dip) 2+ mg/dL (NEGATIVE); UR CLARITY CLEAR (CLEAR); UR COLOR STRAW (YELLOW); UR GLUCOSE (Dip) NEGATIVE (NEGATIVE); UR KETONES (Dip) NEGATIVE (NEGATIVE); UR LEUKOCYTE ESTERASE (Dip) NEGATIVE Leu/ul (NEGATIVE); UR NITRITE (Dip) NEGATIVE (NEGATIVE); UR RBC 1 /HPF (0-5); UR SPECIFIC GRAVITY (Dip) 1.003 (1.003-1.030); UR TOTAL PROTEIN (Dip) NEGATIVE (NEGATIVE); UR UROBILINOGEN (Dip) NEGATIVE (NEGATIVE)
--- NOTE | 2017-05-24 07:39 | RADRPT ---
PROCEDURE: US OB. CLINICAL INDICATION: Vaginal bleeding TECHNIQUE: Transabdominal views of the pelvis are available for review. COMPARISON: No prior studies are available for comparison. FINDINGS: There is a single intrauterine gestation with the crown-rump length measuring 6.7 cm, corresponding to a gestational age of 13 weeks and 0 days. The heart rate is noted at 148 bpm. The right ovary was not seen. The left ovary measures 3.7 x 2.6 x 2.5 cm. There is a 2 cm corpus luteum cyst in the left ovary. There is no free fluid. RPTAT: AA IMPRESSION: Single live intrauterine with an estimated gestational age of 13 weeks and 0 days, based o n ultrasound measurements. PHILIP based on ultrasound measurements is 11/29/17. .Aryan Esposito MD, Date Time Electronically viewed and signed by .Aryan Esposito MD, on 05/24/2017 07:39 .S/
--- NOTE | 2017-05-24 08:00 | ERD ---
ER Documentation Chief Complaint Chief Complaint vaginal bleeding since last night. states 12 weeks HPI 32-year-old female who is A1, LMP, on February 26, 2017, patient of Dr Brown comes in approximately a 12 weeks complaint of vaginal bleeding. She describes vaginal spotting that is bright red, when she wipes. She has no abdominal pain, pelvic pain. She denies fevers or chills. ROS All systems reviewed and are negative except as per history of present illness. Medications Home Meds Active Scripts Alprazolam* (Xanax*) 0.5 Mg Tab, 0.5 MG PO Q8H Y for ANXIETY, #30 TAB Prov:LUNA ORLANDO PA-C 03/07/17 Meclizine Hcl* (Antivert*) 12.5 Mg Tab, 25 MG PO Q6H Y for DIZZINESS, #20 TAB Prov:RAUL BOYER MD 11/08/16 Nitrofurantoin Monohyd Macrocr* (Macrobid*) 100 Mg Capsr, 100 MG PO BID for 7 Days, CAP Prov:ELIZ GRECO 06/27/16 Reported Medications Vits W-Ca,Fe,Fa(<1MG) () 1 Tab Tablet, 1 TAB PO DAILY, #1 03/28/12 Allergies Allergies: Coded Allergies: No Known Allergies (Verified Allergy, Unknown, 05/24/17) PMhx/Soc Medical and Surgical Hx: pt denies Surgical Hx History of Surgery: No Anesthesia Reaction: No Hx Neurological Disorder: No Hx Respiratory Disorders: No Hx Cardiac Disorders: No Hx Psychiatric Problems: No Hx Miscellaneous Medical Probl: Yes (Hypothyroidism) Hx Alcohol Use: No Hx Substance Use: No Hx Tobacco Use: No Smoking Status: Never smoker Physical Exam Vitals Vital Signs Date Time Temp Pulse Resp B/P Pulse Ox O2 Delivery O2 Flow Rate FiO2 05/24/17 05:41 98.4 99 20 124/60 98 Physical Exam Const: [] Head: Atraumatic Eyes: Normal Conjunctiva ENT: Normal External Ears, Nose and Mouth. Neck: Full range of motion..~ No meningismus. Resp: Clear to auscultation bilaterally Cardio: Regular rate and rhythm, no murmurs Abd: Soft, non tender, non distended. Normal bowel sounds Skin: No petechiae or rashes Back: No midline or flank tenderness Ext: No cyanosis, or edema Neur: Awake and alert Psych: Normal Mood and Affect Result Diagram: 05/24/17 0655 Results 24 hrs Laboratory Tests Test 05/24/17 06:51 05/24/17 06:55 Urine Color STRAW Urine Clarity CLEAR Urine pH 7.0 Urine Specific [place] 1.003 Urine Ketones NEGATIVEmg/dL Urine Nitrite NEGATIVEmg/dL Urine Bilirubin NEGATIVEmg/dL Urine Urobilinogen NEGATIVEmg/dL Urine Leukocyte Esterase NEGATIVELeu/ul Urine Microscopic RBC 1/HPF Urine Microscopic WBC 2/HPF Urine Hemoglobin 2+mg/dL Urine Glucose NEGATIVEmg/dL Urine Total Protein NEGATIVEmg/dl White Blood Count 12.810^3/ul Red Blood Count 4.8810^6/ul Hemoglobin 14.7g/dl Hematocrit 41.6% Mean Corpuscular Volume 85.2fl Mean Corpuscular Hemoglobin 30.1pg Mean Corpuscular Hemoglobin Concent 35.3g/dl Red Cell Distribution Width 12.8% Platelet Count 49945^3/UL Mean Platelet Volume 9.8fl Neutrophils % 65.9% Lymphocytes % 26.7% Monocytes % 5.7% Eosinophils % 0.9% Basophils % 0.2% Nucleated Red Blood Cells % 0.0/100WBC Neutrophils # 8.410^3/ul Lymphocytes # 3.410^3/ul Monocytes # 0.710^3/ul Eosinophils # 0.110^3/ul Basophils # 0.010^3/ul Nucleated Red Blood Cells # 0.010^3/ul DIAGNOSTIC IMAGING REPORT Patient: SAVANAH MEYER : 1985 Age: 32 Sex: F MR #: [id number] DOS: 05/24/17 0648 Ordering MD: TERI THURSTON PA-C Location: [facility] Room/Bed: PROCEDURE: US OB. CLINICAL INDICATION: Vaginal bleeding TECHNIQUE: Transabdominal views of the pelvis are available for review. COMPARISON: No prior studies are available for comparison. FINDINGS: There is a single intrauterine gestation with the crown-rump length measuring 6.7 cm, corresponding to a gestational age of 13 weeks and 0 days. The heart rate is noted at 148 bpm. The right ovary was not seen. The left ovary measures 3.7 x 2.6 x 2.5 cm. There is a 2 cm corpus luteum cyst in the left ovary. There is no free fluid. RPTAT: AA IMPRESSION: Single live intrauterine with an estimated gestational age of 13 weeks and 0 days, based on ultrasound measurements. PHILIP based on ultrasound measurements is 11/29/17. .Aryan Esposito MD, MD Date Time Electronically viewed and signed by .Aryan Esposito MD, MD on 05/24/2017 07: 39 .S/ CC: TERI THURSTON Procedures/[facility] 32-year-old female comes in with vaginal spotting starting this morning, the patient reports that she is approximately 12 weeks , her pelvic ultrasound today shows a single live intrauterine at 13 weeks. The patient's type and Rh is O+, there is no indication for RhoGam. She does not have any signs of a UTI, she is hemodynamically stable. Patient will be discharged home to be followed up closely with PATHOLOGY LABORATORY TECHNOLOGIST in 3-4 days. Departure Diagnosis: Primary Impression: Vaginal bleeding in patient at less than 20 weeks gestation Condition: TERI Brian PA-C May 24, 2017 08:00
== END 2017-05-24 09:28 | disposition home or self-care (01) ==
LOC: FTE 05:36
DX: O20.9 Hemorrhage in early pregnancy, unspecified (principal); Z3A.12 12 weeks gestation of pregnancy
CPT/HCPCS: 36415; 76801; 81001; 84702; 85025; 86900; 86901; Z7502

== ENCOUNTER 2017-11-10 12:26 | Outpatient (CLI) | END 2017-11-10 16:15 | disposition home or self-care (01) ==

== ENCOUNTER 2017-11-17 18:31 | Inpatient (IN) | END 2017-11-20 19:15 | disposition home or self-care (01) | DRG 775 ==

== ENCOUNTER 2018-01-07 08:48 | Emergency (ER) | END 2018-01-07 11:06 | disposition home or self-care (01) ==